=== PATIENT | female | born 1985 | race Two or more races ===

== ENCOUNTER 2018-03-13 23:09 | Emergency (ER) | payer OTHER ==
[~2018-03-13] VITALS: Ht 160 cm; Wt 59.0 kg
[2018-03-14] MEDS ORDERED: XOPENEX HFA15 GM IH (02:13)
[2018-03-14] MEDS ORDERED: PROMETH-CODEIN 65 ML PO (02:13)
[2018-03-14] MEDS ORDERED: ZITHROMAX500 MG PO (02:13)
[2018-03-14] MEDS ORDERED: MEDROLPACK PO (02:13)
== END 2018-03-14 02:54 | disposition home or self-care (01) ==
LOC: ER 23:09
DX: J06.9 Acute upper respiratory infection, unspecified (principal)